=== PATIENT | female | born 1995 | race African-American/Black ===

== ENCOUNTER 2018-12-03 06:25 | Emergency (ER) | payer MEDICAID ==
[~2018-12-03] VITALS: Ht 162.6 cm; Wt 59.0 kg
[2018-12-03] MEDS ORDERED: ONDANSETRON HCL 4MG/2ML INJ IV STA (08:06)
[2018-12-03] MEDS ORDERED: SODIUM CHLORIDE 0.9% 1,000 ML IV ONE (08:06)
[2018-12-03] MEDS ORDERED: MAGNESIUM/ALUMINUM HYDROXIDE/SIMETHICONE 30ML UDC PO STA (08:06)
[2018-12-03 08:22] LABS: BASOPHILS % 0.3 % (0.0-2.0); HEMATOCRIT. 43.7 % (36.0-48.0); HEMOGLOBIN. 14.7 g/dL (12.0-16.0); LYMPHOCYTES % 10.9 % (20.0-50.0); MEAN CORPUSCULAR HEMOGLOBIN 26.9 pg (28.0-32.0); MEAN CORPUSCULAR VOLUME 79.8 fL (81.0-99.0); MEAN PLATELET VOLUME 8.3 fl (7.4-10.4); MONOCYTES % 5.3 % (2.0-8.0); NEUTROPHILS % 83.5 % (40.0-76.0); PLATELET 386 x1000/uL (130-400); RED BLOOD CELL COUNT 5.48 mill/uL (4.2-5.4); RED CELL DISTRIBUTION WIDTH 14.5 % (11.6-14.6)
[2018-12-03 08:31] LABS: CHLORIDE 93 mEq/L (98-107)
[2018-12-03 09:07] LABS: CLARITY URINE TURBID (CLEAR); COLOR URINE DARK YELLOW (YELLOW); KETONES URINE 1+ (NEGATIVE); LEUKOCYTE ESTERASE URINE NEGATIVE (NEGATIVE); NITRITE URINE NEGATIVE (NEGATIVE); OCCULT BLOOD URINE 1+ (NEGATIVE); PH URINE 5.5 (4.5-8.0); PROTEIN URINE 3+ (NEGATIVE); SPECIFIC GRAVITY URINE 1.034 (1.005-1.030)
[2018-12-03] MEDS ORDERED: CEFTRIAXONE 1,000 MG in DEXTROSE 5% WATER 50 ML IV SCH (10:45)
[2018-12-03] MEDS ORDERED: METOCLOPRAMIDE HCL 10MG/2ML VIAL IV ONE (11:15)
[2018-12-03 12:10] VITALS: BP 134/80
== END 2018-12-03 12:10 | disposition home or self-care (01) ==
LOC: ER 06:25
DX: N39.0 Urinary tract infection, site not specified (principal); E86.0 Dehydration; R53.83 Other fatigue
CPT/HCPCS: 36415; 80053; 81003; 83690; 85025; 87086; 96361; 96365; 96375; 99283; J0696; J2405; J2765; J7030; J7060

== ENCOUNTER 2024-03-05 15:49 | Emergency (ER) | payer MEDICAID ==
[~2024-03-05] VITALS: Ht 170.2 cm; Wt 85.0 kg
[2024-03-05 16:03] VITALS: TEMP 98.7; O2SAT 100
[2024-03-05] MEDS ORDERED: AMOX-494 MT (17:07)
[2024-03-05] MEDS ORDERED: HYDR-4001 MT (17:07)
[2024-03-05] MEDS: HYDROCODONE/ACETAMINOPHEN 5/325MG TABLET PO ONE (17:26)
[2024-03-05 17:28] VITALS: BP 138/79; PULSE 88; RESP 19; O2SAT 99
== END 2024-03-05 17:29 | disposition home or self-care (01) ==
LOC: ER 15:49
DX: K04.7 Periapical abscess without sinus (principal)
CPT/HCPCS: 99283

== ENCOUNTER 2024-05-18 15:31 | Emergency (ER) | payer MEDICAID ==
[~2024-05-18] VITALS: Ht 160 cm; Wt 69.0 kg
[~2024-05-18 15:31] MED LIST: AMOX-494 MT; HYDR-4001 MT
[2024-05-18 15:42] VITALS: O2SAT 99
[2024-05-18 15:54] VITALS: BP 130/91; PULSE 88; RESP 18; TEMP 97.7; O2SAT 98
[2024-05-18 19:38] LABS: CLARITY URINE TURBID (CLEAR); COLOR URINE RED (YELLOW); GLUCOSE URINE NEGATIVE (NEGATIVE); KETONES URINE NEGATIVE (NEGATIVE); LEUKOCYTE ESTERASE URINE 2+ (NEGATIVE); NITRITE URINE NEGATIVE (NEGATIVE); OCCULT BLOOD URINE 3+ (NEGATIVE); PROTEIN URINE 2+ (NEGATIVE); SPECIFIC GRAVITY URINE 1.033 (1.005-1.030); UROBILINOGEN URINE 0.2 E.U./dL (0.2-1.0)
[2024-05-18] MEDS: ONDANSETRON 4MG ODT PO ONE (20:00)
[2024-05-18 20:58] LABS: RBC URINE TNTC /hpf (0-2); SQUAMOUS EPITHELIAL CELL URINE 1+ /lpf (RARE/1+); WBC URINE 15-25 /hpf (0-2)
[2024-05-18 20:59] LABS: BACTERIA URINE 2+
== END 2024-05-18 23:18 | disposition left against medical advice (07) ==
LOC: ER 15:31
DX: N39.0 Urinary tract infection, site not specified (principal); R10.816 Epigastric abdominal tenderness
CPT/HCPCS: 99284; 76705; 71045; 81003; 87086; Q0162